=== PATIENT | female | born 1950 | race Caucasian/White ===

== ENCOUNTER → 2017-04-24 | Outpatient (CLI) | payer OTHER, BC ==
[~2017-04-24] MED LIST: AUGMENTIN 875875 MG PO; CELEXA 10 MG TA10 M1 PO; DESYREL50 MG PO; LEVOXYL
== END ==
LOC: RAD 11:47
DX: R05 Cough (principal); R14.0 Abdominal distension (gaseous)

== ENCOUNTER → 2017-04-25 | Outpatient (CLI) | payer OTHER, BC | LOC: ULTRA 07:36 | DX: R14.0 Abdominal distension (gaseous) (principal); R05 Cough ==

== ENCOUNTER → 2017-05-25 | Outpatient (CLI) | payer OTHER, BC | LOC: NUC 09:46 | DX: R14.0 Abdominal distension (gaseous) (principal) ==

== ENCOUNTER → 2018-06-18 | Outpatient (CLI) | payer OTHER, BC | LOC: ULTRA 14:45 | DX: N64.4 Mastodynia (principal) ==

== ENCOUNTER → 2018-07-04 | Outpatient (CLI) | payer OTHER, BC | LOC: MRI 09:28 | DX: N64.4 Mastodynia (principal) ==

== ENCOUNTER → 2020-03-01 | Outpatient (CLI) | payer OTHER, BC | LOC: LAB 14:09 | PROVIDERS: ATTEND Family Medicine | DX: R06.02 Shortness of breath (principal); R11.0 Nausea; R05 Cough; Z20.828 Contact with and (suspected) exposure to other viral communicable diseases ==

== ENCOUNTER → 2020-04-15 | Outpatient (CLI) | payer OTHER | LOC: CAT 10:38 | PROVIDERS: ATTEND Family Medicine | DX: Z13.6 Encounter for screening for cardiovascular disorders (principal); I25.10 Atherosclerotic heart disease of native coronary artery without angina pectoris; E78.00 Pure hypercholesterolemia, unspecified ==

== ENCOUNTER → 2021-04-13 | Outpatient (CLI) | payer OTHER, BC | LOC: RAD 13:34 | PROVIDERS: ATTEND Pediatrics | DX: R06.00 Dyspnea, unspecified (principal) ==